=== PATIENT | male | born 1965 | race African-American/Black ===

== ENCOUNTER 2019-08-21 02:55 | Observation (INO) | payer SELFPAY ==
[~2019-08-21] VITALS: Ht 185.4 cm; Wt 97.7 kg
--- NOTE | ~2019-08-21 | EC ---
PATIENT:MARINA MAXWELL DATE OF SERVICE: 08/21/19 SEX: M MEDICAL RECORD: [id number] DATE OF : 67 LOCATION:D.M2 D.211 AGE OF PATIENT: 53 ADMISSION DATE: 08/21/19 REFERRING PHYSICIAN: INTERPRETING PHYSICIAN: PRIMO WALLER MD ECHOCARDIOGRAM REPORT ECHO CHARGES 4 ECHO COMPLETE Date: 08/21/19 CLINICAL DIAGNOSIS: CARDIOMYOPATHY ECHOCARDIOGRAPHIC MEASUREMENTS (adult normal given) AC root (d.<3.7cm) 2.8 cm LV Septum d (<1.2 cm> 3.3 cm Valve Excursion 1.7 cm LV Septum (systole) 3.5 cm Left Atria (s.<4.0cm> 4.2 cm LVPW d(<1.2cm) 2.5 cm RV (d.<2.3cm) 2.7 cm LVPW (sytole) 2.8 cm LV diastole(<5.6CM) 3.3 cm MV E-F(>70mm/sec) cm LV systole 2.8 cm LVOT Diameter 1.7 cm MV exc.(>10mm) cm Est.ejection fraction (50-75%) % DOPPLER: LVIT cm/sec A 56 cm/sec E 35 cm/sec LA cm/sec RVSP 22.5 mmHg LVOT 98 cm/sec AOP1/2T m/s Asc. Ao 100 cm/sec RVOT 68 cm/sec RA cm/sec PA 109 cm/sec AV Gradient Peak 4.0 mmHg AV Mean 2.1 mmHg AV Area 1.8 cm MV Gradient Peak 7.9 mmHg MV Mean 3.1 mmHg MV Area cm COMMENTS: Lieutenant General: Janette [facility] Water System Operator: 4 Dr. Waller TAPE# PACS Pericardial Effusion N DATE OF SERVICE: PROCEDURE: Transthoracic echocardiogram. FINDINGS: Left ventricle has severe hypertrophy throughout the myocardium. Reduction in the LV cavity is seen. The overall ejection fraction is 90+ percent. There is no significant valvular pathology. The aortic valve appears to be normal. The mitral valve appears to be normal. The left atrium is normal size and function. The right ventricular systolic pressures are normal and the right ventricle is normal size, shape, structure, and function. Right atrium is ECHOCARDIOGRAM REPORT [id number] MARINA MAXWELL mildly enlarged. There is catheter artifact in the right ventricle. Inflow characteristics were restrictive. IMPRESSION: The patient has severe concentric left ventricular hypertrophy, more marked in the septum. However, the patient does not have systolic anterior motion of the aortic valve or significant gradient. There is no wall motion abnormalities. TRANSINT:[id number] Voice Confirmation ID: [id number] DOCUMENT ID: [id number] PRIMO WALLER MD CC: [id number] DICTATION DATE: 08/21/19 172 CERTIFIED GENETIC COUNSELOR: 08/21/19 1832 DIS IN 08/21/19 [facility] [address] [id number]
[2019-08-21] MEDS ORDERED: GLUCOTROL 5 MG T5 MG PO (03:01)
[2019-08-21] MEDS ORDERED: DILTIAZEM 24HR360 M4 PO (03:01)
[2019-08-21] MEDS ORDERED: PROTONIX40 MG PO (03:02)
[2019-08-21] MEDS ORDERED: CRESTOR20 MG PO (03:02)
[2019-08-21] MEDS ORDERED: TOPROL XL100 MG PO (03:02)
[2019-08-21] MEDS ORDERED: COLCRYS0.6 MG PO (03:03)
[2019-08-21] MEDS ORDERED: COLACE100 MG PO (03:03)
[2019-08-21] MEDS ORDERED: LASIX40 MG PO (03:03)
[2019-08-21] MEDS ORDERED: BUPROPION XL150 MG PO (03:04)
[2019-08-21] MEDS ORDERED: ZYLOPRIM100 MG PO (03:04)
[2019-08-21] MEDS ORDERED: GABAPENTIN300 MG PO (03:04)
[2019-08-21] MEDS ORDERED: ASPIRIN81 MG PO (03:04)
[2019-08-21] MEDS ORDERED: FERROUS SULFAT325 MG PO (03:05)
[2019-08-21 03:13] LABS: BASOPHILS 0.3 % (0-2); EOSINOPHILS 1.9 % (0-7); HEMATOCRIT 42.6 % (42.0-54.0); HEMOGLOBIN 13.8 g/dL (13.5-17.5); IMMATURE GRANULOCYTES 0.2 % (0-5); LYMPHOCYTES 49.6 % (15-50); MCH 26.6 pg (26.0-34.0); MCHC 32.4 g/dL (31.0-37.0); MCV 82.1 fL (80.0-100.0); MEAN PLATELET VOLUME 10.3 fL (7.4-10.4); MONOCYTES 13.5 % (2-11); NEUTROPHILS 34.5 % (40-80); PLATELET COUNT 190 10x3/uL (130-400); RBC 5.19 10x6/uL (4.20-6.10); RDW 16.8 % (11.5-14.5); WBC 5.8 10x3/uL (4.8-10.8)
[2019-08-21 03:18] VITALS: BP 143/101
[2019-08-21 03:24] LABS: CALC OSMOLALITY 278 mosm/kg (275-300); CALCIUM 9.1 mg/dL (8.5-10.1); CARBON DIOXIDE 23.6 mmol/L (21.0-32.0); CHLORIDE - SERUM 107 mmol/L (98-107); CREATININE - SERUM 1.4 mg/dL (0.6-1.3); GLUCOSE 106 mg/dL (74-106); POTASSIUM - SERUM 3.8 mmol/L (3.5-5.1); SODIUM 140 mmol/L (136-145); UREA NITROGEN 12 mg/dL (7-18); eGFR NON AFRICAN AMERICAN 56 mL/min (90-120)
[2019-08-21 03:27] LABS: APTT 36.6 SECONDS (22.8-39.4); INR 1.05 (0.85-1.17); PROTIME 13.7 SECONDS (11.6-15.0)
[2019-08-21 03:45] LABS: ALBUMIN 3.4 g/dL (3.4-5.0); ALKALINE PHOSPHATASE 61 U/L (30-120); ALT (SGPT) 25 U/L (10-68); BILIRUBIN - TOTAL 0.22 mg/dL (0.2-1.3); CKMB 7.3 U/L (0.0-3.6); CREATINE KINASE 130 UL (21-232); MAGNESIUM - SERUM 2.2 mg/dL (1.8-2.4); PROTEIN - SERUM 7.3 g/dL (6.4-8.2); TROPONIN-I 0.176 ng/mL (0.000-0.060)
[2019-08-21 06:20] VITALS: BP 131/98
[2019-08-21 08:03] VITALS: BP 131/98; BMI 28.4
[2019-08-21 10:01] VITALS: BP 106/84
[2019-08-21 11:59] VITALS: Ht 185.4 cm; Wt 97.7 kg
[2019-08-21 14:10] VITALS: BP 107/80
[2019-08-21 14:20] LABS: CKMB 8.8 U/L (0.0-3.6); CREATINE KINASE 134 UL (21-232)
[2019-08-21 14:24] LABS: TROPONIN-I 0.162 ng/mL (0.000-0.060)
--- NOTE | 2019-08-21 14:50 | NUR ---
IV AND TELEMETRY DCD. DC PLANS GIVEN. SIGNS PAPERWORK. PATEINT UP SET ABOUT BEING DCD.
--- NOTE | 2019-08-21 14:55 | NUR ---
VERY UPSET ABOUT BEING DC HOME. STATES THAT HE THINKS I HAD TO DO WITH HIM BEING DCD HOME. TRIED TO EXPLAIN TO HIM THAT I DIDNT HAVE ANY THING TO DO WITH IT AND THAT I WAS ONLY FALLOWING DRS ORDERS. STATES I HARDLY SPOKE TO HIM AND THEN STATES HE IS BEING DCD BECAUSE THE COLOR OF HIS SKIN. I TRIED TO EXPLAIN TO HIM THAT WAS NOT TH REASON AND THAT I WOULD CALL DARRYL CERVANTES. AFTER I SPOKE TO HER I TOLD HIM THAT DR. WALLER HAD SPOKE TO DR. GROVES SAYING HE DID NOT WANT ANGIOGRAM AND WAS OK TO DC AND FALLOW UP WITH HIS CARDIOGIST AT HOME. HE CONT TO SAY ITS BECAUSE OF HIS COLOR AND THAT I ALSO HAD SOMETHING TO DO WITH HIM BEING DC. PAGED DARRYL WHO SAID HE COULD STAY OVER NIGHT. HE REFUSED TO SPEAK WITH DARRYL OR TO STAY SINCE HE HAS ALREDY GOTTEN DC ORDER AND LEFT HOSPITAL WITH .
== END 2019-08-21 14:00 | disposition home or self-care (01) ==
LOC: D.ER 02:55 → D.M2 04:51 → OBSVTIME 04:51 → D.M2 04:51
PROVIDERS: Emergency Medicine; ADMIT Family Medicine; ATTEND Family Medicine
DX: I20.0 Unstable angina (principal); N17.9 Acute kidney failure, unspecified; I42.2 Other hypertrophic cardiomyopathy; I10 Essential (primary) hypertension; E11.65 Type 2 diabetes mellitus with hyperglycemia; K21.9 Gastro-esophageal reflux disease without esophagitis; M10.9 Gout, unspecified; E78.5 Hyperlipidemia, unspecified; Z95.0 Presence of cardiac pacemaker; F17.200 Nicotine dependence, unspecified, uncomplicated